=== PATIENT | male | born 1985 | race Caucasian/White ===

== ENCOUNTER 2017-06-14 07:50 | Emergency (ER) | payer SELFPAY ==
[~2017-06-14] VITALS: Ht 177.8 cm; Wt 104.3 kg
[2017-06-14 08:43] VITALS: BP 143/81
== END 2017-06-14 09:07 | disposition home or self-care (01) ==
LOC: ER 07:50
DX: R21 Rash and other nonspecific skin eruption (principal); F17.210 Nicotine dependence, cigarettes, uncomplicated